=== PATIENT | male | born 2000 | race Caucasian/White ===

== ENCOUNTER 2022-09-22 07:42 | Emergency (ER) | payer OTHER ==
[~2022-09-22] VITALS: Ht 177.8 cm; Wt 84.1 kg
[2022-09-22 07:57] VITALS: BP 114/72
== END 2022-09-22 08:31 | disposition home or self-care (01) ==
LOC: M ED 07:42 → EDBD 07:42 → M ED 08:31
DX: F10.129 Alcohol abuse with intoxication, unspecified (principal)

== ENCOUNTER 2022-09-23 15:13 | Inpatient (IN) | payer OTHER ==
[~2022-09-23] VITALS: Ht 177.8 cm; Wt 81.2 kg
[2022-09-23 16:00] LABS: HEMOGLOBIN 16.2 g/dl (13.5-17.5); MEAN CORPUSCULAR HEMOGLOBIN 27.9 pg (27.0-33.0); MEAN CORPUSCULAR HGB CONC 33.1 g/dl (32.0-36.5); MEAN CORPUSCULAR VOLUME 84.3 fl (80.0-96.0); PLATELET COUNT, AUTOMATED 288 10^3/uL (150-450); RED BLOOD COUNT 5.81 10^6/uL (4.30-6.10); WHITE BLOOD COUNT 15.7 10^3/uL (4.0-10.0)
[2022-09-23 16:29] LABS: ETHYL ALCOHOL (ETHANOL) < 0.003 % (0.000-0.010)
[2022-09-23 16:31] LABS: ACETAMINOPHEN LEVEL < 2.0 UG/ML (10.0-20.0); SALICYLATE LEVEL < 3.0 MG/DL (<30)
[2022-09-23 16:35] LABS: ALBUMIN 4.4 G/DL (3.2-5.2); ALKALINE PHOSPHATASE 95 U/L (46-116); ALT/SGPT 18 U/L (7.0-40); AST/SGOT 17 U/L (<34); BILIRUBIN,DIRECT 0.5 MG/DL (<0.4); BILIRUBIN,TOTAL 1.5 MG/DL (0.3-1.2); BLOOD UREA NITROGEN 15 MG/DL (9-23); CALCIUM LEVEL 9.3 MG/DL (8.5-10.1); CARBON DIOXIDE LEVEL 22 MMOL/L (20-31); CHLORIDE LEVEL 102 MMOL/L (98-107); CREATININE FOR GFR 0.76 MG/DL (0.70-1.30); GLUCOSE, FASTING 69 MG/DL (60-100); POTASSIUM SERUM 3.9 MMOL/L (3.5-5.1); SODIUM LEVEL 138 MMOL/L (136-145); THYROID STIMULATING HORMONE 0.912 uIU/ML (0.48-4.17); TOTAL PROTEIN 7.4 G/DL (5.7-8.2)
[2022-09-23] MEDS ORDERED: HOME MED LIST COMPLETE! XX SCH (18:05)
[2022-09-23 20:29] LABS: AMPHETAMINES LEVEL URINE NEGATIVE (NEGATIVE); BARBITURATES URINE NEGATIVE (NEGATIVE); BENZODIAZEPINES URINE NEGATIVE (NEGATIVE); CANNABINOIDS URINE NEGATIVE (NEGATIVE); COCAINE METABOLITE URINE NEGATIVE (NEGATIVE); METHADONE URINE NEGATIVE (NEGATIVE); OPIATES URINE NEGATIVE (NEGATIVE); PHENCYCLIDINE URINE NEGATIVE (NEGATIVE)
[2022-09-24] MEDS ORDERED: MOM 30ML SUSPENSION UDC PO PRN (12:55)
[2022-09-24] MEDS ORDERED: IBUPROFEN 400MG TAB PO PRN (12:55)
[2022-09-24] MEDS ORDERED: MAALOX 30 ML SUSP *UDC PO PRN (12:55)
[2022-09-24] MEDS ORDERED: diphenhydrAMINE 25MG CAP PO PRN (12:55)
[2022-09-24 15:41] VITALS: BP 120/63
[2022-09-24] MEDS: NICOTINE 21MG/24HR 1 EA TRANSDERMAL TD SCH (16:57)
[2022-09-25 06:39] VITALS: BP 124/79
[2022-09-25] MEDS: NICOTINE 21MG/24HR 1 EA TRANSDERMAL TD SCH (09:25)
[2022-09-25] MEDS: SERTRALINE HCL 50 MG TAB PO SCH (10:31)
[2022-09-25 16:29] VITALS: BP 132/86
[2022-09-25] MEDS: traZODone 50 MG TAB PO PRN (22:00)
[2022-09-26 06:40] VITALS: BP 122/63
[2022-09-26] MEDS: SERTRALINE HCL 50 MG TAB PO SCH (09:26)
[2022-09-26] MEDS: NICOTINE 21MG/24HR 1 EA TRANSDERMAL TD SCH (09:26)
[2022-09-26 16:28] VITALS: BP 123/58
[2022-09-26] MEDS: traZODone 50 MG TAB PO PRN (22:05)
[2022-09-27 06:29] VITALS: BP 106/61
[2022-09-27] MEDS: SERTRALINE HCL 50 MG TAB PO SCH (09:55)
[2022-09-27] MEDS: NICOTINE 21MG/24HR 1 EA TRANSDERMAL TD SCH (09:56)
[2022-09-27 18:40] VITALS: BP 136/64
[2022-09-27] MEDS: traZODone 50 MG TAB PO PRN (21:18)
[2022-09-28 06:41] VITALS: BP 116/70
[2022-09-28] MEDS: SERTRALINE HCL 50 MG TAB PO SCH (08:06)
[2022-09-28] MEDS: NICOTINE 21MG/24HR 1 EA TRANSDERMAL TD SCH (08:08)
[2022-09-28] MEDS ORDERED: SERT50TA29 PO (08:37)
[2022-09-28] MEDS ORDERED: TRAZ-252 PO (08:37)
== END 2022-09-28 12:38 | disposition home or self-care (01) | DRG 885 ==
LOC: M ED 15:13 → M ED INP 09-24 12:53 → M PSY 09-24 15:51
PROVIDERS: ADMIT Student in an Organized Health Care Education/Training Program; ATTEND Student in an Organized Health Care Education/Training Program
DX: F33.9 Major depressive disorder, recurrent, unspecified (principal); R45.851 Suicidal ideations; F10.20 Alcohol dependence, uncomplicated; D72.829 Elevated white blood cell count, unspecified; F17.210 Nicotine dependence, cigarettes, uncomplicated; Z71.6 Tobacco abuse counseling; Z71.41 Alcohol abuse counseling and surveillance of alcoholic; Z81.1 Family history of alcohol abuse and dependence; Z63.0 Problems in relationship with spouse or partner; Z20.822 Contact with and (suspected) exposure to COVID-19; Z91.51 Personal history of suicidal behavior